=== PATIENT | male | born 1955 | race Caucasian/White ===

== ENCOUNTER 2018-04-22 09:10 | Observation (INO) ==
[2018-04-22] MEDS ORDERED: MORPHINE 4 MG/1 ML VIAL IV STA (09:45)
[2018-04-22] MEDS ORDERED: ONDANSETRON 4 MG/2 ML VIAL IV STA (09:45)
[2018-04-22] MEDS ORDERED: ALUM/MAG/SIMETH/LIDO VISC 1:1 30 ML BOTTLE PO STA (09:45)
[2018-04-22] MEDS ORDERED: ASPIRIN 325 MG TABLET PO STA (09:45)
[2018-04-22] MEDS ORDERED: NITROGLYCERIN DRIP 50 MG/250 ML BOTTLE IV SCH (10:00)
[2018-04-22 10:02] LABS: Basophils % 0.2 % (0.0-0.8); Eosinophils # 0.1 10*3/uL (0.0-0.87); Eosinophils % 1.5 % (0.00-10.9); Hematocrit 38.6 VOL% (42.0-52.0); Hemoglobin 13.5 GM/DL (14.0-18.0); Immature Granulocytes % 0.3 %; Immature Granulocytes Absolute 0.03 #; Lymphocytes # 3.1 10*3/uL (1.4-4.0); Lymphocytes % 33.6 % (21.2-54.2); Mean Corpuscular Hemoglobin 30 PG (27-34); Mean Corpuscular Volume 86.5 FL (87-102); Monocytes # 0.7 10*3/uL (0.11-0.8); Neutrophils # 5.3 10*3/uL (1.4-7.4); Neutrophils % 57.4 % (38.7-73.9); Platelet Count 225 T/CUMM (130-400); Red Blood Count 4.46 MC/CUMM (3.8-5.5); Red Cell Distribution Width 11.9 % (9.3-17.3); White Blood Count 9.2 T/CUMM (4-12)
[2018-04-22] MEDS ORDERED: NITROGLYCERIN 2% OINT 1 INCH/GM PACK TOP STA (10:02)
[2018-04-22 10:13] LABS: PT Patient Result 10.1 SECS
[2018-04-22 10:27] LABS: Albumin 3.4 G/DL (3.4-5.0); Bilirubin,Total 0.4 MG/DL (0.2-1.0); Calcium 9.2 MG/DL (8.5-10.1); Osmolality,Calculated 290.4 MOS/KG (273-304); Potassium 4.1 MMOL/L (3.5-5.1); Total Protein 7.2 G/DL (6.4-8.3)
[2018-04-22 11:18] LABS: Barbiturates Screen,Urine Negative (Negative); Benzodiazepines Screen,Urine Negative (Negative); Cannabinoid Screen,Urine Negative (Negative); Opiate Screen,Urine Negative (Negative); Phencyclidine Screen,Urine Negative (Negative)
[2018-04-22 11:21] LABS: Apearance,Urine CLEAR (Clear); Bilirubin,Urine Negative (Negative); Blood, Urine Negative (Negative); Glucose,Urine (UA) 150 mg/dL (Negative); Ketones,Urine Negative (Negative); Mucus,Urine Occasional /LPF (Occasional); Nitrite,Urine Negative (Negative); Protein,Urine Negative; Urine Color Yellow (Yellow); Urine Specific Gravity 1.011 (1.001-1.035); Urine Urobilinogen < 2.0 EU/DL (0.2-1.0); WBC,Urine <1 /HPF (0-6)
[2018-04-22 11:31] LABS: Granular Casts,Urine 1 /LPF (0-1); Hyaline Casts,Urine 4 /LPF (0-3)
[2018-04-22] MEDS ORDERED: DEXTROSE 50% 25 GM/50 ML VIAL IV PRN (11:54)
[2018-04-22] MEDS ORDERED: POTASSIUM CHLORIDE 20 MEQ TABLET PO PRN (11:54)
[2018-04-22] MEDS ORDERED: GLUCAGON 1 MG VIAL IM PRN (11:54)
[2018-04-22] MEDS ORDERED: ACETAMINOPHEN 325 MG TABLET PO PRN (11:54)
[2018-04-22] MEDS: PANTOPRAZOLE 40 MG TABLET PO SCH (13:38)
[2018-04-22] MEDS: SODIUM CHLORIDE 0.9% 1,000 ML IV SCH (15:41)
[2018-04-22] MEDS ORDERED: POTASSIUM CHLORIDE RIDER 10 MEQ in PREMIX 1 EACH IV PRN (15:45)
[2018-04-22] MEDS ORDERED: MAGNESIUM SULF RIDER 2 GM in PREMIX 1 EACH IV PRN (15:45)
[2018-04-22] MEDS: INSULIN LISPRO 100 UNIT/ML SUBCUT SCH ×2 (16:54→21:28)
[2018-04-22] MEDS ORDERED: diphenhydrAMINE 50 MG/1 ML VIAL ONE (17:43)
[2018-04-22] MEDS: diphenhydrAMINE 50 MG/1 ML VIAL IV PRN (18:13)
[2018-04-22] MEDS: VENLAFAXINE 75 MG TABLET PO SCH (19:03)
[2018-04-22] MEDS: MORPHINE 4 MG/1 ML VIAL IV PRN (21:36)
[2018-04-22] MEDS: ONDANSETRON 4 MG/2 ML VIAL IV PRN (21:37)
[2018-04-23 05:44] LABS: Basophils % 0.2 % (0.0-0.8); Eosinophils # 0.1 10*3/uL (0.0-0.87); Eosinophils % 1.5 % (0.00-10.9); Hematocrit 36.4 VOL% (42.0-52.0); Hemoglobin 12.8 GM/DL (14.0-18.0); Immature Granulocytes % 0.2 %; Immature Granulocytes Absolute 0.02 #; Lymphocytes # 3.3 10*3/uL (1.4-4.0); Lymphocytes % 37.2 % (21.2-54.2); Mean Corpuscular HGB Conc 35.2 GM/DL (32-36); Mean Corpuscular Hemoglobin 30 PG (27-34); Mean Corpuscular Volume 86.1 FL (87-102); Mean Platelet Volume 11.8 FL (9.6-12.0); Monocytes # 0.6 10*3/uL (0.11-0.8); Monocytes % 6.7 % (1.7-12.7); Neutrophils # 4.8 10*3/uL (1.4-7.4); Neutrophils % 54.2 % (38.7-73.9); Platelet Count 230 T/CUMM (130-400); Red Blood Count 4.23 MC/CUMM (3.8-5.5); Red Cell Distribution Width 11.9 % (9.3-17.3); White Blood Count 8.9 T/CUMM (4-12)
[2018-04-23 06:17] LABS: Calcium 8.4 MG/DL (8.5-10.1); Potassium 4.3 MMOL/L (3.5-5.1); Risk Ratio 3.25; VLDL CHOLESTEROL 11.6 MG/DL
[2018-04-23] MEDS: MORPHINE 4 MG/1 ML VIAL IV PRN ×2 (06:17→22:22)
[2018-04-23] MEDS: INSULIN LISPRO 100 UNIT/ML SUBCUT SCH ×4 (07:43→22:21)
[2018-04-23] MEDS ORDERED: diphenhydrAMINE CAP 25 MG CAPSULE PO ONE (08:00)
[2018-04-23] MEDS ORDERED: DIAZEPAM 5 MG TABLET PO ONE (08:00)
[2018-04-23] MEDS ORDERED: ASPIRIN 325 MG TABLET PO ONE (08:00)
[2018-04-23] MEDS ORDERED: HEPARIN/NACL 0.9% 2 UNITS/ML 1,000 ML IV ONE (09:32)
[2018-04-23] MEDS ORDERED: LIDOCAINE 1% 20 ML VIAL ONE (09:45)
[2018-04-23] MEDS ORDERED: MIDAZOLAM 2 MG/2 ML VIAL ONE (09:47)
[2018-04-23] MEDS ORDERED: fentaNYL 100 MCG/2 ML VIAL ONE (09:47)
[2018-04-23] MEDS: VENLAFAXINE 75 MG TABLET PO SCH ×2 (10:12→18:18)
[2018-04-23] MEDS: ASPIRIN CHEW 81 MG TABLET PO SCH (10:12)
[2018-04-23] MEDS: TAMSULOSIN 0.4 MG CAPSULE PO SCH (10:12)
[2018-04-23] MEDS: PANTOPRAZOLE 40 MG TABLET PO SCH (10:16)
[2018-04-23] MEDS ORDERED: ZALEPLON 5 MG CAPSULE PO PRN (10:27)
[2018-04-23] MEDS: diphenhydrAMINE 50 MG/1 ML VIAL IV PRN (18:06)
[2018-04-23] MEDS: SODIUM CHLORIDE 0.9% 1,000 ML IV SCH ×4 (18:19→22:24)
[2018-04-23] MEDS ORDERED: ATORVASTATIN 40 MG TABLET PO SCH (21:00)
[2018-04-23] MEDS: CARVEDILOL 3.125 MG TABLET PO SCH (22:21)
[2018-04-24] MEDS: ONDANSETRON 4 MG/2 ML VIAL IV PRN (00:45)
[2018-04-24] MEDS: SODIUM CHLORIDE 0.9% 1,000 ML IV SCH (04:56)
[2018-04-24 06:01] LABS: Basophils % 0.2 % (0.0-0.8); Eosinophils # 0.2 10*3/uL (0.0-0.87); Eosinophils % 2.1 % (0.00-10.9); Hematocrit 40.2 VOL% (42.0-52.0); Hemoglobin 13.7 GM/DL (14.0-18.0); Immature Granulocytes % 0.3 %; Immature Granulocytes Absolute 0.03 #; Lymphocytes # 3.8 10*3/uL (1.4-4.0); Lymphocytes % 41.7 % (21.2-54.2); Mean Corpuscular HGB Conc 34.1 GM/DL (32-36); Mean Corpuscular Hemoglobin 30 PG (27-34); Mean Platelet Volume 10.9 FL (9.6-12.0); Monocytes # 0.7 10*3/uL (0.11-0.8); Monocytes % 7.3 % (1.7-12.7); Neutrophils # 4.4 10*3/uL (1.4-7.4); Neutrophils % 48.4 % (38.7-73.9); Platelet Count 220 T/CUMM (130-400); Red Blood Count 4.62 MC/CUMM (3.8-5.5); Red Cell Distribution Width 11.8 % (9.3-17.3); White Blood Count 9.2 T/CUMM (4-12)
[2018-04-24 06:19] LABS: Calcium 8.5 MG/DL (8.5-10.1); Osmolality,Calculated 285.4 MOS/KG (273-304); Potassium 4.5 MMOL/L (3.5-5.1)
[2018-04-24] MEDS: MORPHINE 4 MG/1 ML VIAL IV PRN (06:28)
[2018-04-24] MEDS: INSULIN LISPRO 100 UNIT/ML SUBCUT SCH ×2 (07:39→13:08)
[2018-04-24] MEDS ORDERED: LOSARTAN 25 MG TABLET PO SCH (09:00)
[2018-04-24] MEDS: VENLAFAXINE 75 MG TABLET PO SCH (09:46)
[2018-04-24] MEDS: TAMSULOSIN 0.4 MG CAPSULE PO SCH (09:47)
[2018-04-24] MEDS: CARVEDILOL 3.125 MG TABLET PO SCH (09:47)
[2018-04-24] MEDS: PANTOPRAZOLE 40 MG TABLET PO SCH (09:47)
[2018-04-24] MEDS: ASPIRIN CHEW 81 MG TABLET PO SCH (09:47)
[2018-04-24 10:49] VITALS: BP 154/84
== END 2018-04-24 15:32 ==
LOC: N.ED 09:10 → N.EDINP 09:10 → SUATTDRO 10:52 → N.3W 12:00
PROVIDERS: ADMIT Internal Medicine; ATTEND Internal Medicine
PROC: CLCCHCL (ICD-10-PCS; 2018-04-23 10:15)